=== PATIENT | female | born 1975 | race Caucasian/White ===

== ENCOUNTER 2017-12-18 10:32 | Inpatient (IN) | payer OTHER ==
[~2017-12-18] VITALS: Ht 165.1 cm; Wt 65.0 kg
[~2017-12-18 10:32] MED LIST: AMLO10 PO; CIPR250 PO; Humalog100 UNIT/1 SC; INSDET100 SC; INSLI100I; Zofran8 MG PO
[2017-12-18 10:56] LABS: Hematocrit 49.1 % (33.0-51.0); Hemoglobin 12.9 g/dL (11.5-16.0); Mean Corpuscular HGB 26.8 pg (26.0-34.0); Mean Corpuscular HGB Conc 26.3 g/dL (31.5-36.5); Mean Corpuscular Volume 102 fL (80-100); NRBC ABSOLUTE 0.02 K/mm3 (0.00-0.02); NRBC Auto 0.1 /100 WBC (0.0-0.2); Platelet Count 502 K/mm3 (150-400); RDW Coefficient Variation 16.3 % (11.7-14.2); RDW Standard Deviation 61.7 fL (35.1-46.3); Red Blood Cell Count 4.81 M/mm3 (3.80-5.20); White Blood Cell Count 33.51 K/mm3 (4.00-11.30)
[2017-12-18 11:00] LABS: Source, Urine Catheter
[2017-12-18 11:15] LABS: Bilirubin, Urine Neg (Neg); Blood, Urine 1+ (Neg); Glucose Qualitative, Urine 4+ (Neg); Ketones, Urine 4+ (Neg); Leukocyte Esterase, Urine Neg (Neg); Nitrite, Urine Neg (Neg); Protein, Urine 2+ (Neg); Specific Gravity, Urine 1.015 (1.003-1.022); Urobilinogen, Urine NORM (Normal)
[2017-12-18 11:21] LABS: BAND PERCENT MAN 1 % (0-8); BASOPHILS PERCENT MAN 0 % (0-2); EOSINOPHILS ABSOLUTE MAN 0.33 K/mm3 (0.00-0.68); EOSINOPHILS PERCENT MAN 1 % (0-6); LYMPHOCYTES ABSOLUTE MAN 5.69 K/mm3 (0.84-5.20); LYMPHOCYTES PERCENT MAN 17 % (21-46); METAMYELOCYTE ABSOLUTE MAN 0.33 K/mm3 (0.00-0.00); METAMYELOCYTE PERCENT MAN 1 % (0-0); MONOCYTES ABSOLUTE MAN 1.34 K/mm3 (0.16-1.47); MONOCYTES PERCENT MAN 4 % (4-13); SEG NEUTROPHILS PERCENT MAN 76 % (41-73); TOTAL CELLS COUNTED 100
[2017-12-18 11:28] LABS: Ethanol (Alcohol), Blood, Med <3 mg/dL; Troponin I <0.015 ng/mL (0.000-0.040)
[2017-12-18 11:29] LABS: U Amphetamine Screen Not Detected; U Barbituate Screen Not Detected; U Benzodiazapine Screen Not Detected; U Buprenorphine Screen Not Detected; U Cannabinoids Screen Not Detected; U Cocaine Screen Not Detected; U Methadone Screen Not Detected; U Methamphetamine Screen Not Detected; U Opiates Screen Not Detected; U Oxycodone Screen Not Detected; U Phencyclidine Screen Not Detected; U Propoxyphene Screen Not Detected
[2017-12-18 11:35] LABS: Appearance, Urine Hazy (Clear); Color, Urine Yellow (P-Yellow)
[2017-12-18 11:38] LABS: Bacteria Rare /hpf; Red Blood Cells, Urine 0-2 /hpf (0-2); Squamous Epithelial Cells Not Seen /hpf (Few); White Blood Cells, Urine Not Seen /hpf (0-5)
[2017-12-18 11:51] LABS: Alanine Aminotransfer (ALT/SGP 15 U/L (12-78); Albumin, Blood 3.4 g/dL (3.4-5.0); Albumin/Globulin Ratio 0.8 (0.8-1.8); Alk Phos 150 U/L (50-136); Anion Gap 38 mmol/L (6-16); Aspartate Aminotrans (AST/SGOT 14 U/L (12-37); Bilirubin, Total 0.5 mg/dL (0.1-1.0); Blood Urea Nitrogen 40 mg/dL (8-24); CO2, Blood 3 mmol/L (21-32); Calcium, Blood 9.2 mg/dL (8.5-10.1); Chloride, Blood 92 mmol/L (98-108); Creatinine, Blood 2.35 mg/dL (0.40-1.00); Globulin, Blood 4.5 g/dL (2.2-4.0); Glomerular Filtration Rate 24 (60-); Glucose, Blood 1323 mg/dL (70-99); Potassium, Blood 5.3 mmol/L (3.5-5.5); Sodium, Blood 133 mmol/L (136-145); Total Protein, Blood 7.9 g/dL (6.4-8.2)
[2017-12-18 11:52] LABS: Beta-hydroxybutyrate >138.0 mg/dL (0.2-2.8)
[2017-12-18 14:02] LABS: PCO2 Arterial 11.3 mmHg (35-45); PO2 Arterial 173 mmHg (80-100); pH Blood Arterial 6.81 (7.35-7.45)
[2017-12-18 14:11] LABS: Bun/Creatinine Ratio 20.5 (12.0-20.0); Calcium, Blood 7.4 mg/dL (8.5-10.1); Creatinine, Blood 1.95 mg/dL (0.40-1.00); Potassium, Blood 4.3 mmol/L (3.5-5.5)
[2017-12-18 15:50] LABS: Glucose, Blood 873 mg/dL (70-99); Potassium, Blood 4.4 mmol/L (3.5-5.5)
[2017-12-18 16:35] LABS: Potassium, Blood 4.3 mmol/L (3.5-5.5)
[2017-12-18 17:38] LABS: Potassium, Blood 4.4 mmol/L (3.5-5.5)
[2017-12-18 17:42] LABS: Glucose, Blood 701 mg/dL (70-99)
[2017-12-18 17:47] LABS: Glucose, Blood 760 mg/dL (70-99)
[2017-12-18 18:30] LABS: Glucose (ISTAT POC) 524 mg/dL (70-99)
[2017-12-18 19:07] LABS: Glucose, Blood 496 mg/dL (70-99)
[2017-12-18 19:27] LABS: Potassium, Blood 3.9 mmol/L (3.5-5.5)
[2017-12-18 20:55] LABS: Potassium, Blood 3.7 mmol/L (3.5-5.5)
[2017-12-19 00:45] LABS: Potassium, Blood 4.4 mmol/L (3.5-5.5)
[2017-12-19 03:41] LABS: BASOPHILS ABSOLUTE AUTO 0.02 K/mm3 (0.00-0.23); BASOPHILS PERCENT AUTO 0 % (0-2); EOSINOPHILS PERCENT AUTO 0 % (0-6); Hematocrit 31.3 % (33.0-51.0); Hemoglobin 10.4 g/dL (11.5-16.0); IMMATURE GRAN ABSOLUTE AUTO 0.13 K/mm3 (0.00-0.10); IMMATURE GRAN PERCENT AUTO 1 % (0-1); LYMPHOCYTES ABSOLUTE AUTO 1.37 K/mm3 (0.84-5.20); LYMPHOCYTES PERCENT AUTO 10 % (21-46); MONOCYTES ABSOLUTE AUTO 1.11 K/mm3 (0.16-1.47); MONOCYTES PERCENT AUTO 8 % (4-13); Mean Corpuscular HGB 26.3 pg (26.0-34.0); Mean Corpuscular HGB Conc 33.2 g/dL (31.5-36.5); Mean Platelet Volume 10.8 fL (9.1-12.4); NEUTROPHILS ABSOLUTE AUTO 11.11 K/mm3 (1.96-9.15); NEUTROPHILS PERCENT AUTO 81 % (41-73); Platelet Count 249 K/mm3 (150-400); RDW Coefficient Variation 15.9 % (11.7-14.2); Red Blood Cell Count 3.96 M/mm3 (3.80-5.20); White Blood Cell Count 13.74 K/mm3 (4.00-11.30)
[2017-12-19 03:44] LABS: Mean Corpuscular Volume 79 fL (80-100)
[2017-12-19 03:59] LABS: Bun/Creatinine Ratio 19.9 (12.0-20.0); Creatinine, Blood 1.56 mg/dL (0.40-1.00); Potassium, Blood 4.1 mmol/L (3.5-5.5)
[2017-12-19 07:22] LABS: Bun/Creatinine Ratio 19.5 (12.0-20.0); Calcium, Blood 7.8 mg/dL (8.5-10.1); Creatinine, Blood 1.49 mg/dL (0.40-1.00); Potassium, Blood 3.8 mmol/L (3.5-5.5)
[2017-12-19 15:34] LABS: Bun/Creatinine Ratio 15.6 (12.0-20.0); Calcium, Blood 7.8 mg/dL (8.5-10.1); Creatinine, Blood 1.41 mg/dL (0.40-1.00); Potassium, Blood 3.7 mmol/L (3.5-5.5)
[2017-12-20 06:08] LABS: Bun/Creatinine Ratio 11.1 (12.0-20.0); Calcium, Blood 7.6 mg/dL (8.5-10.1); Creatinine, Blood 1.17 mg/dL (0.40-1.00); Potassium, Blood 3.5 mmol/L (3.5-5.5)
[2017-12-20 13:03] LABS: Glucose, Blood 500 mg/dL (70-99)
[2017-12-20 17:17] LABS: Adenovirus F 40/41 Not Detected (NOT DETECT); Astrovirus Not Detected (NOT DETECT); Campylobacter Sp Not Detected (NOT DETECT); Cryptosporidium Not Detected (NOT DETECT); Cyclospora Cayetanensis Not Detected (NOT DETECT); E. Coli O157 Not Detected (NOT DETECT); Entamoeba Histolytica Not Detected (NOT DETECT); Enteroaggregative E. coli-EAEC Not Detected (NOT DETECT); Enteropathogenic E. coli-EPEC Not Detected (NOT DETECT); Enterotoxigenic E. coli-ETEC Not Detected (NOT DETECT); Giardia Lamblia Not Detected (NOT DETECT); Norovirus GI/GII Not Detected (NOT DETECT); Plesiomonas Shigelloides Not Detected (NOT DETECT); Rotavirus A Not Detected (NOT DETECT); Salmonella Sp Not Detected (NOT DETECT); Sapovirus Not Detected (NOT DETECT); Shiga Toxin-prod E. coli-STEC Not Detected (NOT DETECT); Shigella/Enteroin E. coli-EIEC Not Detected (NOT DETECT); Vibrio Cholerae Not Detected (NOT DETECT); Vibrio Sp Not Detected (NOT DETECT); Yersinia Enterocolitica Not Detected (NOT DETECT)
[2017-12-21 04:22] LABS: BASOPHILS ABSOLUTE AUTO 0.03 K/mm3 (0.00-0.23); BASOPHILS PERCENT AUTO 0 % (0-2); EOSINOPHILS ABSOLUTE AUTO 0.03 K/mm3 (0.00-0.68); EOSINOPHILS PERCENT AUTO 0 % (0-6); Hematocrit 30.2 % (33.0-51.0); Hemoglobin 9.8 g/dL (11.5-16.0); IMMATURE GRAN ABSOLUTE AUTO 0.02 K/mm3 (0.00-0.10); IMMATURE GRAN PERCENT AUTO 0 % (0-1); LYMPHOCYTES ABSOLUTE AUTO 2.32 K/mm3 (0.84-5.20); LYMPHOCYTES PERCENT AUTO 33 % (21-46); MONOCYTES ABSOLUTE AUTO 0.47 K/mm3 (0.16-1.47); MONOCYTES PERCENT AUTO 7 % (4-13); Mean Corpuscular HGB 26.7 pg (26.0-34.0); Mean Corpuscular HGB Conc 32.5 g/dL (31.5-36.5); Mean Platelet Volume 10.4 fL (9.1-12.4); NEUTROPHILS ABSOLUTE AUTO 4.09 K/mm3 (1.96-9.15); NEUTROPHILS PERCENT AUTO 59 % (41-73); Platelet Count 141 K/mm3 (150-400); RDW Coefficient Variation 16.2 % (11.7-14.2); RDW Standard Deviation 48.8 fL (35.1-46.3); Red Blood Cell Count 3.67 M/mm3 (3.80-5.20); White Blood Cell Count 6.96 K/mm3 (4.00-11.30)
[2017-12-21 04:23] LABS: Mean Corpuscular Volume 82 fL (80-100)
[2017-12-21 04:43] LABS: Bun/Creatinine Ratio 12.7 (12.0-20.0); Calcium, Blood 7.9 mg/dL (8.5-10.1); Creatinine, Blood 1.1 mg/dL (0.40-1.00); Potassium, Blood 3.2 mmol/L (3.5-5.5)
[2017-12-21] MEDS ORDERED: ALPR.5 PO (09:36)
[2017-12-21] MEDS ORDERED: ACET325 PO (09:36)
[2017-12-21] MEDS ORDERED: GABA100 PO (09:37)
[2017-12-21] MEDS ORDERED: INSULANPEN SC (09:38)
[2017-12-21] MEDS ORDERED: Humalog100 UNIT/1 SC (09:40)
[2017-12-21] MEDS ORDERED: LOPE2C PO (09:42)
[2017-12-21] MEDS ORDERED: ONDA4ODT MM (09:42)
[2017-12-21] MEDS ORDERED: PANT40 PO (09:43)
[2017-12-21] MEDS ORDERED: Lisinopril2.5 MG PO (09:46)
[2017-12-21] MEDS ORDERED: POTCHL10ER PO (09:46)
[2017-12-21] MEDS ORDERED: Techlite Blood1 EACH (09:47)
== END 2017-12-21 11:21 | disposition home or self-care (01) | DRG 638 ==
LOC: ER 10:32 → ICUW 13:01 → ICUE 14:37
PROVIDERS: Emergency Medicine; Family Medicine; Internal Medicine
PROC: 3E0234Z Introduction of Serum, Toxoid and Vaccine into Muscle, Percutaneous Approach (ICD-10-PCS; principal; 2017-12-18)
DX: E10.10 Type 1 diabetes mellitus with ketoacidosis without coma (principal); N17.9 Acute kidney failure, unspecified; N39.0 Urinary tract infection, site not specified; G93.40 Encephalopathy, unspecified; E87.1 Hypo-osmolality and hyponatremia; T68.XXXA Hypothermia, initial encounter; Z96.41 Presence of insulin pump (external) (internal); K58.0 Irritable bowel syndrome with diarrhea; E86.0 Dehydration; E87.6 Hypokalemia; I95.9 Hypotension, unspecified; Z79.4 Long term (current) use of insulin; Z23 Encounter for immunization
CPT/HCPCS: 36415; 36600; 70450; 71045; 80048; 80051; 80053; 81001; 82010; 82803; 82947; 83605; 84484; 85025; 87040; 87507; 90686; 93005; 93010; 96361; 96374; 99285-25; C9113; G0008; G0480; J0696; J1650; J1815; J2405; J2765; J3480; J7030; J7070

== ENCOUNTER 2018-10-31 15:03 | Emergency (ER) | payer OTHER ==
[~2018-10-31] VITALS: Ht 167.6 cm; Wt 68.0 kg
[~2018-10-31 15:03] MED LIST changes: +ACET325 PO; +ALPR.5 PO; +GABA100 PO; +INSULANPEN SC; +LOPE2C PO; +Lisinopril2.5 MG PO; +ONDA4ODT MM; +PANT40 PO; +POTCHL10ER PO; +Techlite Blood1 EACH
[2018-10-31 15:43] LABS: BASOPHILS ABSOLUTE AUTO 0.06 K/mm3 (0.00-0.23); BASOPHILS PERCENT AUTO 1 % (0-2); EOSINOPHILS ABSOLUTE AUTO 0.04 K/mm3 (0.00-0.68); EOSINOPHILS PERCENT AUTO 0 % (0-6); Hematocrit 32.9 % (33.0-51.0); Hemoglobin 10.2 g/dL (11.5-16.0); IMMATURE GRAN ABSOLUTE AUTO 0.02 K/mm3 (0.00-0.10); IMMATURE GRAN PERCENT AUTO 0 % (0-1); LYMPHOCYTES ABSOLUTE AUTO 2.17 K/mm3 (0.84-5.20); LYMPHOCYTES PERCENT AUTO 23 % (21-46); MONOCYTES ABSOLUTE AUTO 0.48 K/mm3 (0.16-1.47); MONOCYTES PERCENT AUTO 5 % (4-13); Mean Corpuscular HGB 25.2 pg (26.0-34.0); Mean Corpuscular Volume 81 fL (80-100); Mean Platelet Volume 10.4 fL (9.1-12.4); NEUTROPHILS ABSOLUTE AUTO 6.73 K/mm3 (1.96-9.15); NEUTROPHILS PERCENT AUTO 71 % (41-73); Platelet Count 329 K/mm3 (150-400); RDW Coefficient Variation 15.9 % (11.7-14.2); RDW Standard Deviation 46.5 fL (35.1-46.3); Red Blood Cell Count 4.04 M/mm3 (3.80-5.20)
[2018-10-31 15:46] LABS: Base Excess Venous -1.4 mmol/L; Bicarbonate Venous 23.6 mmol/L (24.0-30.0); PCO2 Venous 33.9 mmHg (38-42); PO2 Venous 114 mmHg (38-42); pH Blood Venous 7.44 (7.34-7.37)
[2018-10-31 15:50] LABS: Source, Urine Clean Catch
[2018-10-31 15:59] LABS: Bilirubin, Urine Neg (Neg); Blood, Urine 4+ (Neg); Glucose Qualitative, Urine 4+ (Neg); Ketones, Urine 3+ (Neg); Leukocyte Esterase, Urine 3+ (Neg); Nitrite, Urine Neg (Neg); Protein, Urine 2+ (Neg); Specific Gravity, Urine 1.015 (1.003-1.022); Urobilinogen, Urine NORM (Normal)
[2018-10-31 16:03] LABS: Albumin, Blood 2.8 g/dL (3.4-5.0); Albumin/Globulin Ratio 0.7 (0.8-1.8); Beta-hydroxybutyrate 43.1 mg/dL (0.2-2.8); Bilirubin, Total 0.4 mg/dL (0.1-1.0); Bun/Creatinine Ratio 17.3 (12.0-20.0); Calcium, Blood 8.7 mg/dL (8.5-10.1); Creatinine, Blood 1.62 mg/dL (0.40-1.00); Total Protein, Blood 6.8 g/dL (6.4-8.2)
[2018-10-31 16:15] LABS: Appearance, Urine Cloudy (Clear); Color, Urine Yellow (P-Yellow)
[2018-10-31 16:16] LABS: Bacteria Many /hpf; Squamous Epithelial Cells Few /hpf (Few); White Blood Cells, Urine TNTC /hpf (0-5)
[2018-10-31] MEDS ORDERED: CEFP200 PO (17:17)
[2018-10-31] MEDS ORDERED: ONDA4ODT MM (17:17)
== END 2018-10-31 17:57 | disposition home or self-care (01) ==
LOC: ER 15:03
PROVIDERS: Physician Assistant
DX: N17.9 Acute kidney failure, unspecified (principal); N39.0 Urinary tract infection, site not specified; E11.9 Type 2 diabetes mellitus without complications
CPT/HCPCS: 36415; 80053; 81001; 81025; 82010; 82803; 82947; 85025; 87086; 96361; 96365; 99284-25; J0696; J7030

== ENCOUNTER 2019-01-24 07:20 | Inpatient (IN) | payer OTHER ==
[~2019-01-24] VITALS: Ht 167.6 cm; Wt 59.0 kg
[~2019-01-24 07:20] MED LIST changes: +CEFP200 PO
[2019-01-24 07:36] LABS: Base Excess Venous -32.7 mmol/L; Bicarbonate Venous 4.1 mmol/L (24.0-30.0); PCO2 Venous 11.4 mmHg (38-42); PO2 Venous 158 mmHg (38-42)
[2019-01-24 07:40] LABS: Calcium, Ionized (POC) 1.09 mmol/L (1.10-1.46); Chloride (POC) 102 mmol/L (98-108); Creatinine (POC) 2.3 mg/dL (0.6-1.0); Glucose (ISTAT POC) >700 mg/dL (70-99); Hemoglobin (POC) 10.9 g/dL (12.0-16.0); Potassium (POC) 6.1 mmol/L (3.5-5.5); Sodium (POC) 127 mmol/L (135-148); Total CO2 (POC) <5 mmol/L (21-32)
[2019-01-24 07:45] LABS: BASOPHILS ABSOLUTE AUTO 0.12 K/mm3 (0.00-0.23); BASOPHILS PERCENT AUTO 1 % (0-2); EOSINOPHILS ABSOLUTE AUTO 0.01 K/mm3 (0.00-0.68); EOSINOPHILS PERCENT AUTO 0 % (0-6); Hematocrit 35.1 % (33.0-51.0); Hemoglobin 9.9 g/dL (11.5-16.0); IMMATURE GRAN ABSOLUTE AUTO 0.28 K/mm3 (0.00-0.10); IMMATURE GRAN PERCENT AUTO 2 % (0-1); LYMPHOCYTES ABSOLUTE AUTO 1.72 K/mm3 (0.84-5.20); LYMPHOCYTES PERCENT AUTO 10 % (21-46); MONOCYTES ABSOLUTE AUTO 1.28 K/mm3 (0.16-1.47); MONOCYTES PERCENT AUTO 7 % (4-13); Mean Corpuscular HGB 27.7 pg (26.0-34.0); Mean Corpuscular HGB Conc 28.2 g/dL (31.5-36.5); Mean Corpuscular Volume 98 fL (80-100); Mean Platelet Volume 11.6 fL (9.1-12.4); NEUTROPHILS ABSOLUTE AUTO 14.59 K/mm3 (1.96-9.15); NEUTROPHILS PERCENT AUTO 81 % (41-73); Platelet Count 421 K/mm3 (150-400); RDW Coefficient Variation 14.5 % (11.7-14.2); Red Blood Cell Count 3.58 M/mm3 (3.80-5.20)
[2019-01-24 08:14] LABS: Magnesium, Blood 2.6 mg/dL (1.6-2.4)
[2019-01-24 08:20] LABS: Phosphorus, Blood 9.2 mg/dL (2.5-4.9)
[2019-01-24 08:24] LABS: Albumin, Blood 2.4 g/dL (3.4-5.0); Albumin/Globulin Ratio 0.8 (0.8-1.8); Bilirubin, Total 0.4 mg/dL (0.1-1.0); Bun/Creatinine Ratio 16.7 (12.0-20.0); Creatinine, Blood 2.22 mg/dL (0.40-1.00); Globulin, Blood 3.1 g/dL (2.2-4.0); Potassium, Blood 6.1 mmol/L (3.5-5.5); Total Protein, Blood 5.5 g/dL (6.4-8.2)
[2019-01-24 08:41] LABS: Source, Urine Catheter
[2019-01-24 08:53] LABS: Bilirubin, Urine Neg (Neg); Blood, Urine 2+ (Neg); Glucose Qualitative, Urine 4+ (Neg); Ketones, Urine 3+ (Neg); Leukocyte Esterase, Urine 2+ (Neg); Nitrite, Urine Pos (Neg); Protein, Urine 2+ (Neg); Specific Gravity, Urine 1.015 (1.003-1.022); Urobilinogen, Urine NORM (Normal)
[2019-01-24 08:59] LABS: Appearance, Urine Hazy (Clear); Color, Urine Yellow (P-Yellow)
[2019-01-24 09:00] LABS: Granular Casts 0-2 /lpf (0)
[2019-01-24 09:01] LABS: White Blood Cells, Urine 50-100 /hpf (0-5)
[2019-01-24 09:02] LABS: Bacteria Many /hpf; Squamous Epithelial Cells Few /hpf (Few)
[2019-01-24 09:07] LABS: U Amphetamine Screen Not Detected; U Barbituate Screen Not Detected; U Benzodiazapine Screen Not Detected; U Buprenorphine Screen Not Detected; U Cannabinoids Screen Not Detected; U Cocaine Screen Not Detected; U Methadone Screen Not Detected; U Methamphetamine Screen Not Detected; U Opiates Screen Not Detected; U Oxycodone Screen Not Detected; U Phencyclidine Screen Not Detected; U Propoxyphene Screen Not Detected
[2019-01-24 09:09] LABS: Ethanol (Alcohol), Blood, Med <3 mg/dL
--- NOTE | 2019-01-24 10:00 | NUR ---
INITIAL ASSESMENT PT ADMIT TO ICU 2 VIA STRETCHER WITH INSULIN AND ANTIBX INFUSING. PT ARROUSABLE TO PAINFUL STIM AND WILL OPEN HER EYES AND FOLLOW COMMANDS. ORIENTED TO SELF, NO NON VERBAL INDICATIONS TO PAIN. PT AFEBRILE, TACHY, PALP PULSES T/O, HYPOTENSIVE AND MD ADVISED. WILL BOLUS PER MD ORDERS. RUE MIDLINE PLACED VIA CN, GOOD BLOOD DRAW AND FLUSHES AMIRA, LEFT HAND PIV D/C IT WAS A FEILD START. NO EDEMA. RA WITH SATS WNL. KUSSMAL BREATHING AND TACHY.NPO AT THIS TIME, ABD SOFT FLAT AND NON TENDER WITH HYPO BTS. UO ADEQUATE AND LIGHT YELLOW VIA FOLWY. SKIN INTACT. UNABLE TO REACH PATIENTS DAUGHTER VIA PHONE AND NOT FOUND IN [facility]. CN AWARE. WILL CONT TO MONITOR
[2019-01-24 11:03] LABS: Bun/Creatinine Ratio 16.5 (12.0-20.0); Calcium, Blood 7.5 mg/dL (8.5-10.1)
[2019-01-24 11:06] LABS: Potassium, Blood 4.1 mmol/L (3.5-5.5)
[2019-01-24 11:08] LABS: Glucose, Blood 839 mg/dL (70-99)
[2019-01-24 11:55] LABS: Base Excess Venous -26.2 mmol/L; Bicarbonate Venous 7.2 mmol/L (24.0-30.0); PCO2 Venous 14.7 mmHg (38-42); PO2 Venous 108 mmHg (38-42); pH Blood Venous 7.06 (7.34-7.37)
--- NOTE | 2019-01-24 12:00 | NUR ---
PT UPDATE PT REMAINS HYPOTENSIVE AND TACHY, BOLUSES PER MD. SBP IN 70S TO 80S WITH MAP BELOW 60. PALP PULSES, UO ADEQUATE, TITRATING INSULIN DOWN TO ASSURE SLOW CORRECTION, LAB DRAWING CS BEDSIDE WILL NOT READ LEVEL. RA WITH SATS WNL. WILL CONT TO MONITOR.
[2019-01-24 12:40] LABS: Osmolality, Serum 353 mos/KG (275-300)
[2019-01-24 12:44] LABS: Glucose, Blood 728 mg/dL (70-99)
[2019-01-24 13:20] LABS: Glucose, Blood 619 mg/dL (70-99)
[2019-01-24 14:08] LABS: Glucose, Blood 564 mg/dL (70-99)
[2019-01-24 15:36] LABS: Calcium, Blood 7.3 mg/dL (8.5-10.1); Creatinine, Blood 1.93 mg/dL (0.40-1.00); Potassium, Blood 3.7 mmol/L (3.5-5.5)
--- NOTE | 2019-01-24 16:00 | NUR ---
PT UPDATE PT REMAINS HYPOTENSIVE, CALLED TO CHANGE TO NS, FINISH LR AND START LEVO FOR GOAL MAP GREATER THAN 60. UO REMAINS STABLE PT AROUSABLE TO VERBAL STIM, TACHY, BS DECLINING AND TITRATING INSULIN. PICC RN CALLED TO ADVANCE PICC OVER MIDLINE FOR PRESSERS. AWARE, CN AT BEDSIDE. WILL CONT TO MONITOR
--- NOTE | 2019-01-24 20:00 | NUR ---
ASSUMED CARE NOTE: ASSUMED CARE OF PT AT 1900, RECEVIED REPORT FROM YUMIKO HIGH. UPON ENTERING ROOM, PT WAS ABLE TO RESPOND TO PAIN AND VERBAL SITMULI. PT IS ORIENTED TO SELF. PT IS SLOW TO RESPOND TO QUESTIONS AND BECOMES FRUSTRATED AND AGITATED. HOWEVER SHE IS ABLE TO FOLLOW DIRECTIONS. PT HAS BEEN NAUSEATED AND VOMITED 5CC OF GREEN EMESIS. PT WAS MEDICATED FOR N/V PER EMAR. HOSPITALIST (RACHAEL) WAS CALLED OF CHANGE IN STATUS AND NEW ORDERS WERE GIVEN. PT IS CURRENTLY ON RA WITH SPO2 ABOVE 90%. VSS. PT CURRENTLY IN SINUS TACH. LEVOPHED @ 2 MCG/MIN, INSULIN 1 UNIT/HR. BED AT LOWEST LEVEL. WILL CONTINUE TO MONITOR PT T/O SHIFT.
[2019-01-24 20:29] LABS: Base Excess Venous -9.7 mmol/L; Bicarbonate Venous 16.9 mmol/L (24.0-30.0); PCO2 Venous 38.4 mmHg (38-42); PO2 Venous 46.4 mmHg (38-42); pH Blood Venous 7.26 (7.34-7.37)
[2019-01-24 20:52] LABS: Bun/Creatinine Ratio 16.4 (12.0-20.0); Calcium, Blood 7.3 mg/dL (8.5-10.1); Creatinine, Blood 1.71 mg/dL (0.40-1.00); Potassium, Blood 3.5 mmol/L (3.5-5.5)
[2019-01-25 01:12] LABS: Bun/Creatinine Ratio 15.7 (12.0-20.0); Calcium, Blood 7.2 mg/dL (8.5-10.1); Creatinine, Blood 1.66 mg/dL (0.40-1.00); Potassium, Blood 3.9 mmol/L (3.5-5.5)
[2019-01-25 03:56] LABS: BASOPHILS ABSOLUTE AUTO 0.09 K/mm3 (0.00-0.23); BASOPHILS PERCENT AUTO 1 % (0-2); EOSINOPHILS ABSOLUTE AUTO 0.07 K/mm3 (0.00-0.68); EOSINOPHILS PERCENT AUTO 0 % (0-6); Hematocrit 22.9 % (33.0-51.0); Hemoglobin 7.5 g/dL (11.5-16.0); IMMATURE GRAN ABSOLUTE AUTO 0.08 K/mm3 (0.00-0.10); IMMATURE GRAN PERCENT AUTO 1 % (0-1); LYMPHOCYTES ABSOLUTE AUTO 3.09 K/mm3 (0.84-5.20); LYMPHOCYTES PERCENT AUTO 18 % (21-46); MONOCYTES ABSOLUTE AUTO 1.43 K/mm3 (0.16-1.47); MONOCYTES PERCENT AUTO 8 % (4-13); Mean Corpuscular HGB 26.8 pg (26.0-34.0); Mean Corpuscular HGB Conc 32.8 g/dL (31.5-36.5); Mean Corpuscular Volume 82 fL (80-100); Mean Platelet Volume 10.2 fL (9.1-12.4); NEUTROPHILS ABSOLUTE AUTO 12.68 K/mm3 (1.96-9.15); NEUTROPHILS PERCENT AUTO 73 % (41-73); Platelet Count 360 K/mm3 (150-400); RDW Coefficient Variation 14.9 % (11.7-14.2); RDW Standard Deviation 43.4 fL (35.1-46.3); White Blood Cell Count 17.44 K/mm3 (4.00-11.30)
[2019-01-25 04:09] LABS: Alanine Aminotransfer (ALT/SGP 21 U/L (12-78); Albumin/Globulin Ratio 0.8 (0.8-1.8); Alk Phos 70 U/L (50-136); Anion Gap 7 mmol/L (6-16); Aspartate Aminotrans (AST/SGOT 26 U/L (12-37); Blood Urea Nitrogen 25 mg/dL (8-24); Bun/Creatinine Ratio 15.3 (12.0-20.0); CO2, Blood 23 mmol/L (21-32); Calcium, Blood 7.3 mg/dL (8.5-10.1); Chloride, Blood 115 mmol/L (98-108); Creatinine, Blood 1.63 mg/dL (0.40-1.00); Globulin, Blood 2.6 g/dL (2.2-4.0); Glomerular Filtration Rate 36 (60-); Glucose, Blood 184 mg/dL (70-99); Magnesium, Blood 1.5 mg/dL (1.6-2.4); Phosphorus, Blood 2.9 mg/dL (2.5-4.9); Sodium, Blood 145 mmol/L (136-145); Total Protein, Blood 4.6 g/dL (6.4-8.2)
[2019-01-25 04:30] LABS: Bilirubin, Total <0.1 mg/dL (0.1-1.0)
--- NOTE | 2019-01-25 05:15 | NUR ---
CALLED DR. FINLEY: REGARDING PT'S STATUS. NEW ORDERS GIVEN TO REPLACE MAGNESIUM. NO CHANGES MADE TO INSULIN DRIP. WILL CONTINUE TO MONTIOR PT T/O SHIFT.
--- NOTE | 2019-01-25 05:54 | NUR ---
SHIFT SUMMARY: PT REMAINS UNABLE TO ANSWER QUESTIONS APPROPRIATLY. PT IS ABLE TO RESPOND TO VERBAL AND PAINFUL STIMULI. PT REMAINS ON RA WITH SP02 ABOVE 90%. PT HAS BEEN HYPOTENSIVE DURING SHIFT AND FOR THE MAJORITY OF THE SHIFT PT WAS ON LEVOPHED @ 4MCG/MIN, HOWEVER LEVOPHED HAS BEEN ABLE TO BE LOWERED TO 2MCG/MIN WITH MAP REMAINING ABOVE 60 AND SBP ABOVE 90. PT EXPERIENCED ONE MORE EPISODE OF NAUSEA AND SHE WAS MEDICATED PER EMAR. PT'S HAS HAD DECREASED URINE OUTPUT WITH A TOTAL OF 300MLS FOR SHIFT. SEDIMENT NOTED IN URINE. KHALIL FLUSHED. KHALIL REMAINS PATENT AND IS FREE FROM OBSTRUCTIONS. NSR WITH HR BETWEEN 90-100, OCCASIONAL HR ABOVE 100 BMP. PT HAS BEEN REPOSITIONED Q2HR. D5/NS RUNNING @ 200ML/HR. INSULIN 1U/HR. BED AT LOWEST LEVEL. WILL CONTINUE TO MONITOR PT UNTIL REPORT IS GIVEN TO ONCOMING SHIFT.
--- NOTE | 2019-01-25 08:11 | NUR ---
ASSUMED CARE: RECEIVED REPORT FROM NOC RN. PT SITTING UP IN BED, APPEARS TO BE SLEEPING UPON ENTERING THE ROOM. NO ACUTE DISTRESS NOTED. BLOOD SURGAR TAKEN AND NOTED TO BE 183. DR ELIZALDE CALLED AND NOTIFIED OF BLOOD SUGAR, ANION AT 7, CO2 AT 23 AND D5 /C 1/2NS AT 200ML/HR AND INSULIN RUNNING AT 1 UNIT/HR. NO NEW ORDERS OF YET AWAITING TO SEE IF PT CAN EAT. PT GIVEN APPLE SAUCE TO SEE IF SHE GETS NAUSEOUS. PT IS NOTED HAVE APPROX 2+ EDEMA IN HER HANDS AND SOME GENERAL EDEMA NOTED AROUND HER EYES. PT APPEARS TO BE VERY GRUFF THIS MORNING BEING VERY SHORT WITH HER ANSWERS, WHEN NOTING THE EDEMA IN HER HANDS PT STATES "BECAUSE YOU'RE GIVING ME TO MUCH FLUIDS" ATTEMPTED TO EDUCATE PT ON BEING SEPTIC UPON ARIVING TO THE HOSPTIAL. ASKED PT IF SHE WOULD BE ABLE TO TAKE HER RING OFF CONSIDERING HER FINGERS ARE VERY SWOLLEN AND PT RAISES HER VOICE AND SAYS "NO, AND YOUR NOT GOING TO TAKE IT OFF EITHER". WILL CONTINUE TO MONITOR AND ASSESS FURHTER.
--- NOTE | 2019-01-25 11:04 | NUR ---
Received call from bedside nurse Samantha. She reports Pt is interested in completing an Advanced Directive. Pt is A&OX4 and denies pain, dyspnea, and anxiety at this time. Engaged in therapeutic discussion regarding competing an AD. Pt appears drowsey but is easily redirected to conversation. Educated Pt on AD and each section to be completed. Educated on life sustaining measures with V/U made by Pt. Assisted with partial completion of AD and Pt intials wishes for life sustaining measures. Pt appoints her friend Aislinn as health care used equipment sales representative. Instructed Pt Aislinn and Pt will need to sign in front of notary or witnesses. Pt V/U. No other concerns reported at this time. Palliative Care will remain available.
[2019-01-25 12:07] LABS: Percent Saturation 10.4 % (15.0-50.0)
--- NOTE | 2019-01-25 16:17 | NUR ---
UPDATE: PT HAS APPEARED TO BE A/O X 3 T/O THE DAY, BUT LITHARGIC. PT APPEARS TO FALL ASLEEP EASILY, BUT WILL WAKE TO VERBAL STEMULI. INSULIN WAS TURNED OFF AT APPROX 1300. LEVOPHED WAS TURNED OFF APPROX 1100. PT HAS APPEARED TO BE STABLE T/O THE DAY. NO ACUTE DISTRESS NOTED T/O THE DAY. WILL CONTINUE TO MONITOR AND ASSESS FURTHER.
--- NOTE | 2019-01-25 17:50 | NUR ---
ASSUMED CARE OF PT
--- NOTE | 2019-01-25 19:10 | NUR ---
REPORT TO MODEL BUILDER RN. PT RESTING IN BED WITHOUT COMPLAINTS.
--- NOTE | 2019-01-25 19:30 | NUR ---
ASSUMPTION OF CARE RECEIVED REPORT FROM LINDEN HIGH. 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 CURRENTLY HAS A UTI. FULL CODE STATUS. PATIENT IS CURRENTLY RESTING IN BED, QUIET. DENIES ANY PAIN OR DISCOMFORT. LEVOPHED AND INSULIN DRIPS ARE ON STANDBY. HAS TKO. SHAY PICC IS @ 3CM, ALL LINES PATENT, LINES WERE FLUSHED, CAPS CHANGED, GOOD BLOOD RETURN ON THE DISTAL LINE. DRESSING IS C/D/I. IV IN RIGHT HAND FLUSHED, IS PATENT. DRESSING C/D/I. VITALS STABLE AND WNL. WILL CONTINUE TO MONITOR. FRANK HERNANDEZ
[2019-01-26 04:54] LABS: BASOPHILS ABSOLUTE AUTO 0.03 K/mm3 (0.00-0.23); BASOPHILS PERCENT AUTO 1 % (0-2); EOSINOPHILS ABSOLUTE AUTO 0.01 K/mm3 (0.00-0.68); EOSINOPHILS PERCENT AUTO 0 % (0-6); Hematocrit 24.1 % (33.0-51.0); Hemoglobin 7.9 g/dL (11.5-16.0); IMMATURE GRAN ABSOLUTE AUTO 0.03 K/mm3 (0.00-0.10); IMMATURE GRAN PERCENT AUTO 1 % (0-1); LYMPHOCYTES ABSOLUTE AUTO 1.59 K/mm3 (0.84-5.20); LYMPHOCYTES PERCENT AUTO 33 % (21-46); MONOCYTES ABSOLUTE AUTO 0.31 K/mm3 (0.16-1.47); MONOCYTES PERCENT AUTO 6 % (4-13); Mean Corpuscular HGB 27.6 pg (26.0-34.0); Mean Corpuscular HGB Conc 32.8 g/dL (31.5-36.5); Mean Corpuscular Volume 84 fL (80-100); Mean Platelet Volume 9.5 fL (9.1-12.4); NEUTROPHILS ABSOLUTE AUTO 2.84 K/mm3 (1.96-9.15); NEUTROPHILS PERCENT AUTO 59 % (41-73); Platelet Count 160 K/mm3 (150-400); RDW Coefficient Variation 15.6 % (11.7-14.2); RDW Standard Deviation 47.4 fL (35.1-46.3); Red Blood Cell Count 2.86 M/mm3 (3.80-5.20); White Blood Cell Count 4.81 K/mm3 (4.00-11.30)
--- NOTE | 2019-01-26 05:28 | NUR ---
PATIENT HAS BEEN RESTING AND QUIET THROUGHOUT THE SHIFT. PICC AT 3CM LEFT ARM, PATENT, DRESSING C/D/I. IV 20G RIGHT HAND, PATENT, DRESSING C/D/I. INSULIN DRIP ON STANDBY, TKO IS OPEN. PT REFUSED NYSTATIN POWDER AND PROTONIX "I DONT NEED IT/DON'T WANT IT". WOULD NOT LET ME TOUCH FEET TO CHECK PULSES. KHALIL IS PATENT, URINE IS DRAINING YELLOW WITH SEDIMENT. SYSTOLIC HAS RANGED FROM 110s TO 150s, DIASTOLIC 70s TO 90s. HR 90-100. RR 7-16 THROUGHOUT SHIFT.WBC AT 4.81, DOWN FROM 17.44. WILL CONTINUE TO MONITOR PT AND GIVE DAYSHIFT RN REPORT. MAITE HERNANDEZ.
[2019-01-26 05:32] LABS: Albumin, Blood 1.8 g/dL (3.4-5.0); Anion Gap 7 mmol/L (6-16); Blood Urea Nitrogen 17 mg/dL (8-24); Bun/Creatinine Ratio 12.5 (12.0-20.0); CO2, Blood 22 mmol/L (21-32); Calcium, Blood 7.4 mg/dL (8.5-10.1); Chloride, Blood 114 mmol/L (98-108); Creatinine, Blood 1.36 mg/dL (0.40-1.00); Glomerular Filtration Rate 45 (60-); Glucose, Blood 170 mg/dL (70-99); Magnesium, Blood 1.8 mg/dL (1.6-2.4); Phosphorus, Blood 2.6 mg/dL (2.5-4.9); Sodium, Blood 143 mmol/L (136-145)
[2019-01-26] MEDS ORDERED: Pedi-Dri 100,0060 GM TOP (12:34)
[2019-01-26] MEDS ORDERED: HIGH POTENCY P1 EACH PO (12:34)
[2019-01-26] MEDS ORDERED: CEPH500 PO (12:35)
[2019-01-26] MEDS ORDERED: ONDA4ODT MM (12:35)
--- NOTE | 2019-01-26 13:32 | NUR ---
PT ASSESED THIS AM AT 0800. PT IN BED IRRITABLE AND "FRUSTRATED". "TIRED OF BEING IN BED". REMI GOODE'D. PT SBA TO CHAIR. PT MUCH HAPPIER IN CHAIR. PT DENIED C/O PAIN/NAUSEA. MALENA BREAKFAST AND LUNCH. DR ELIZALDE IN TO SEE PT. NEW ORDERS TO DISCHARGE PT HOME. RX FAXED TO [facility] PER PT REQUEST. VERBAL AND WRITTEN DC INFO GIVEN TO PT W CLEAR UNDERSTANDING. PICC LINE DC'D W/O ISSUES. PT IS DRESSED AND WAITING IN BED FOR RIDE HOME. CALL LIGHT WITHIN REACH.
== END 2019-01-26 14:00 | disposition home or self-care (01) | DRG 871 ==
LOC: ER 07:20 → ICUE 08:59 → ICUW 08:59 → ICUE 10:00
PROVIDERS: Emergency Medicine; Internal Medicine Critical Care Medicine; Nurse Practitioner Acute Care; ADMIT Internal Medicine
DX: A41.9 Sepsis, unspecified organism (principal); E10.10 Type 1 diabetes mellitus with ketoacidosis without coma; R65.21 Severe sepsis with septic shock; N17.9 Acute kidney failure, unspecified; N39.0 Urinary tract infection, site not specified; E87.1 Hypo-osmolality and hyponatremia; N18.3 Chronic kidney disease, stage 3 (moderate); E11.22 Type 2 diabetes mellitus with diabetic chronic kidney disease; I12.9 Hypertensive chronic kidney disease with stage 1 through stage 4 chronic kidney disease, or unspecified chronic kidney disease; Z79.4 Long term (current) use of insulin; E83.42 Hypomagnesemia; D50.9 Iron deficiency anemia, unspecified; D63.1 Anemia in chronic kidney disease; E10.43 Type 1 diabetes mellitus with diabetic autonomic (poly)neuropathy; K31.84 Gastroparesis; E87.5 Hyperkalemia; E83.39 Other disorders of phosphorus metabolism; K21.9 Gastro-esophageal reflux disease without esophagitis; F41.1 Generalized anxiety disorder; B37.9 Candidiasis, unspecified; Z87.440 Personal history of urinary (tract) infections
CPT/HCPCS: 36415; 36569; 51702; 71045; 80047; 80048; 80053; 80069; 81001; 81025; 82550; 82607; 82728; 82746; 82803; 82947; 83036; 83540; 83550; 83605; 83690; 83735; 83930; 84100; 85014; 85025; 87077; 87086; 87186; 93005; 93010; 96361-59; 96374-59; 96375-59; 96376-59; 99285-25; C1751; C9113; G0480; J0610; J0696; J1644; J1815; J2310; J2405; J2765; J3475; J3480; J7030; J7042; J7050; J7060; J7120

== ENCOUNTER → 2020-11-04 | Outpatient (CLI) | payer OTHER ==
[~2020-11-04] MED LIST changes: +AMLO5 PO; +BASAGLAR K100 UNIT/4 SC; +CEPH500 PO; +HIGH POTENCY P1 EACH PO; -INSULANPEN SC; +INSULIN LI100 UNIT/6 SC; +KEFLEX500 MG PO; +NEURONTIN300 MG PO; +PROBIOTIC & AC1 EACH PO; +Pedi-Dri 100,0060 GM TOP
[2020-11-04 17:46] LABS: Albumin, Blood 2.5 g/dL (3.4-5.0); Anion Gap 9 mmol/L (6-16); Blood Urea Nitrogen 24 mg/dL (8-24); CO2, Blood 23 mmol/L (21-32); Calcium, Blood 7.8 mg/dL (8.5-10.1); Chloride, Blood 109 mmol/L (98-108); Glomerular Filtration Rate 27 (60-); Glucose, Blood 215 mg/dL (70-99); Phosphorus, Blood 3.9 mg/dL (2.5-4.9); Potassium, Blood 4.7 mmol/L (3.5-5.5); Sodium, Blood 141 mmol/L (136-145)
== END | disposition home or self-care (01) ==
LOC: LAB SHORT 17:33 → LAB 17:33
PROVIDERS: Physician Assistant
DX: N18.32 Chronic kidney disease, stage 3b (principal)
CPT/HCPCS: 80069

== ENCOUNTER 2021-05-22 13:45 | Inpatient (IN) | payer OTHER ==
[~2021-05-22] VITALS: Ht 167.6 cm; Wt 78.2 kg
[2021-05-22 14:00] LABS: Calcium, Ionized (POC) 1.15 mmol/L (1.10-1.46); Chloride (POC) 97 mmol/L (98-108); Creatinine (POC) 3.5 mg/dL (0.6-1.0); Glucose (ISTAT POC) >700 mg/dL (70-99); Hemoglobin (POC) 8.2 g/dL (12.0-16.0); Potassium (POC) 6.5 mmol/L (3.5-5.5); Sodium (POC) 122 mmol/L (135-148); Total CO2 (POC) 8 mmol/L (21-32)
[2021-05-22 14:13] LABS: PO2 Arterial 214 mmHg (80-100); pH Blood Arterial 6.94 (7.35-7.45)
[2021-05-22 14:31] LABS: BASOPHILS ABSOLUTE AUTO 0.03 K/mm3 (0.00-0.23); BASOPHILS PERCENT AUTO 0 % (0-2); Hematocrit 26.4 % (33.0-51.0); Hemoglobin 7.3 g/dL (11.5-16.0); LYMPHOCYTES ABSOLUTE AUTO 2.75 K/mm3 (0.84-5.20); LYMPHOCYTES PERCENT AUTO 16 % (21-46); MONOCYTES PERCENT AUTO 5 % (4-13); Mean Corpuscular HGB 27.8 pg (26.0-34.0); Mean Corpuscular HGB Conc 27.7 g/dL (31.5-36.5); Mean Corpuscular Volume 100 fL (80-100); Mean Platelet Volume 11.2 fL (9.1-12.4); Platelet Count 468 K/mm3 (150-400); RDW Coefficient Variation 13.4 % (11.7-14.2); RDW Standard Deviation 49.2 fL (35.1-46.3); Red Blood Cell Count 2.63 M/mm3 (3.80-5.20); White Blood Cell Count 17.01 K/mm3 (4.00-11.30)
[2021-05-22 14:35] LABS: EOSINOPHILS ABSOLUTE AUTO 0.01 K/mm3 (0.00-0.68); EOSINOPHILS PERCENT AUTO 0 % (0-6); IMMATURE GRAN ABSOLUTE AUTO 0.67 K/mm3 (0.00-0.10); IMMATURE GRAN PERCENT AUTO 4 % (0-1); NEUTROPHILS ABSOLUTE AUTO 12.65 K/mm3 (1.96-9.15); NEUTROPHILS PERCENT AUTO 74 % (41-73)
[2021-05-22 15:05] LABS: Albumin, Blood 1.2 g/dL (3.4-5.0); Albumin/Globulin Ratio 0.4 (0.8-1.8); Beta-hydroxybutyrate 135.2 mg/dL (0.2-2.8); Bilirubin, Total 0.4 mg/dL (0.1-1.0); Bun/Creatinine Ratio 11.5 (12.0-20.0); Calcium, Blood 7.2 mg/dL (8.5-10.1); Creatinine, Blood 3.4 mg/dL (0.40-1.00); Globulin, Blood 3.1 g/dL (2.2-4.0); Potassium, Blood 6.6 mmol/L (3.5-5.5); Total Protein, Blood 4.3 g/dL (6.4-8.2)
[2021-05-22 15:09] LABS: International Normalized Ratio 1.53; Prothrombin Time Results 15.6 Sec (9.7-11.5)
[2021-05-22 15:09] LABS: BAND PERCENT MAN 6 % (0-8); BASOPHILS PERCENT MAN 0 % (0-2); EOSINOPHILS PERCENT MAN 0 % (0-6); LYMPHOCYTES ABSOLUTE MAN 2.55 K/mm3 (0.84-5.20); LYMPHOCYTES PERCENT MAN 15 % (21-46); MONOCYTES ABSOLUTE MAN 0.51 K/mm3 (0.16-1.47); MONOCYTES PERCENT MAN 3 % (4-13); MYELOCYTE ABSOLUTE MAN 0.17 K/mm3 (0.00-0.00); MYELOCYTE PERCENT MAN 1 % (0-0); NEUTROPHILS ABSOLUTE MAN 13.77 K/mm3 (1.96-9.15); SEG NEUTROPHILS PERCENT MAN 75 % (41-73); TOTAL CELLS COUNTED 100
[2021-05-22 15:17] LABS: Influenza A, PCR NEGATIVE (NEGATIVE); Influenza B, PCR NEGATIVE (NEGATIVE); Resp Syncytial Virus, PCR NEGATIVE (NEGATIVE)
[2021-05-22 15:24] LABS: Source, Urine Foley catheter
[2021-05-22 15:25] LABS: SARS-Cov-2 (COVID-19) PCR, MMC POSITIVE (NEGATIVE)
[2021-05-22 15:32] LABS: Bilirubin, Urine Neg (Neg); Blood, Urine 4+ (Neg); Glucose Qualitative, Urine 4+ (Neg); Ketones, Urine 2+ (Neg); Leukocyte Esterase, Urine 3+ (Neg); Nitrite, Urine Neg (Neg); Protein, Urine 3+ (Neg); Specific Gravity, Urine 1.025 (1.003-1.022); Urobilinogen, Urine NORM (Normal)
[2021-05-22 15:42] LABS: U Amphetamine Screen Not Detected; U Barbituate Screen Not Detected; U Benzodiazapine Screen Not Detected; U Buprenorphine Screen Not Detected; U Cannabinoids Screen Not Detected; U Cocaine Screen Not Detected; U Methadone Screen Not Detected; U Methamphetamine Screen Not Detected; U Opiates Screen Not Detected; U Oxycodone Screen Not Detected; U Phencyclidine Screen Not Detected; U Propoxyphene Screen Not Detected
[2021-05-22 15:44] LABS: Appearance, Urine Cloudy (Clear); Color, Urine Pale Yellow (P-Yellow)
[2021-05-22 15:45] LABS: Bacteria Many /hpf; Red Blood Cells, Urine 25-50 /hpf (0-2); Squamous Epithelial Cells Few /hpf (Few); Yeast/Fungi Urine Few /hpf
[2021-05-22 15:46] LABS: Amorphous Light (0-Heavy); Mucus Light (0-Heavy)
[2021-05-22 17:48] LABS: Bun/Creatinine Ratio 11.1 (12.0-20.0); Creatinine, Blood 3.15 mg/dL (0.40-1.00); Potassium, Blood 5.4 mmol/L (3.5-5.5)
[2021-05-22 17:49] LABS: Calcium, Blood 9.6 mg/dL (8.5-10.1)
[2021-05-22 17:53] LABS: Glucose, Blood 1190 mg/dL (70-99)
[2021-05-22 18:26] LABS: Base Excess Venous -29.7 mmol/L; Bicarbonate Venous 5.1 mmol/L (24.0-30.0); PCO2 Venous 25.6 mmHg (38-42); pH Blood Venous 6.83 (7.34-7.37)
--- NOTE | 2021-05-22 18:45 | NUR ---
REMOVED IO PLACED IN LEFT FRYE BY ED. CATHETER INTACT.
--- NOTE | 2021-05-22 19:06 | NUR ---
PT ARRIVED AT 1800. LEVO, PROPOFOL AND MED LINES RUNNING. PT ON 12 OF LEVO, 40 OF PROPOFOL, NS BOLUS RUNNING, SAFE ET PLACED ON CENTRAL LINE, INSULUIN DRIP CONTINUED, REPEAT POCT COLLECTED, LEFT FRYE WOUND CULTURED, REPLACED CENTRAL LINE DRESSING WITH CHG. PT HAS OPENED EYES AND SAT FORWARD, BUT NO COUCH AND UNREACTIVE PUPILS. FAMILY AWARE OF PT IN ICU. PT IS VENTEC ON VC 16/400/75%/5. WOUNDS WERE PHOTOGRAPHED, REMAIN OPEN TO AIR. PT WAS HYPOTHERMIC AT 90.6 AND BEAR HUGGER WAS PLACED. REPORT GIVEN TO ARIEL HIGH. OG TO VINCE.
[2021-05-22 20:39] LABS: Albumin, Blood 1.2 g/dL (3.4-5.0); Anion Gap 25 mmol/L (6-16); Blood Urea Nitrogen 37 mg/dL (8-24); Bun/Creatinine Ratio 11.9 (12.0-20.0); CO2, Blood 7 mmol/L (21-32); Chloride, Blood 100 mmol/L (98-108); Glomerular Filtration Rate 16 (60-); Glucose, Blood 1043 mg/dL (70-99); Potassium, Blood 4.9 mmol/L (3.5-5.5); Sodium, Blood 132 mmol/L (136-145)
[2021-05-22 22:34] LABS: Glucose, Blood 1040 mg/dL (70-99)
[2021-05-22 23:44] LABS: Glucose, Blood 1048 mg/dL (70-99)
[2021-05-23 00:37] LABS: Glucose, Blood 1003 mg/dL (70-99)
[2021-05-23 02:07] LABS: Glucose, Blood 1046 mg/dL (70-99)
[2021-05-23 03:42] LABS: Hematocrit 22.9 % (33.0-51.0); Hemoglobin 7.6 g/dL (11.5-16.0); Mean Corpuscular HGB 28.5 pg (26.0-34.0); Mean Corpuscular HGB Conc 33.2 g/dL (31.5-36.5); Mean Platelet Volume 10.5 fL (9.1-12.4); NRBC ABSOLUTE 0.07 K/mm3 (0.00-0.02); NRBC Auto 0.7 /100 WBC (0.0-0.2); Platelet Count 422 K/mm3 (150-400); RDW Coefficient Variation 13.7 % (11.7-14.2); RDW Standard Deviation 42.8 fL (35.1-46.3); Red Blood Cell Count 2.67 M/mm3 (3.80-5.20); White Blood Cell Count 10.47 K/mm3 (4.00-11.30)
[2021-05-23 03:52] LABS: Mean Corpuscular Volume 86 fL (80-100)
[2021-05-23 04:03] LABS: Alanine Aminotransfer (ALT/SGP 26 U/L (12-78); Albumin, Blood 1.9 g/dL (3.4-5.0); Albumin/Globulin Ratio 0.7 (0.8-1.8); Alk Phos 92 U/L (50-136); Anion Gap 17 mmol/L (6-16); Aspartate Aminotrans (AST/SGOT 37 U/L (12-37); Bilirubin, Direct 0.2 mg/dL (0.0-0.3); Bilirubin, Indirect 0.3 mg/dL (0.1-0.7); Bilirubin, Total 0.5 mg/dL (0.1-1.0); Blood Urea Nitrogen 35 mg/dL (8-24); Bun/Creatinine Ratio 11.6 (12.0-20.0); CO2, Blood 15 mmol/L (21-32); Calcium, Blood 6.4 mg/dL (8.5-10.1); Chloride, Blood 99 mmol/L (98-108); Creatinine, Blood 3.03 mg/dL (0.40-1.00); Globulin, Blood 2.7 g/dL (2.2-4.0); Glomerular Filtration Rate 17 (60-); Phosphorus, Blood 3.6 mg/dL (2.5-4.9); Potassium, Blood 4.2 mmol/L (3.5-5.5); Sodium, Blood 131 mmol/L (136-145); Total Protein, Blood 4.6 g/dL (6.4-8.2); Vancomycin, Random 26.4 ug/mL
[2021-05-23 04:08] LABS: Glucose, Blood 986 mg/dL (70-99)
[2021-05-23 05:29] LABS: BAND PERCENT MAN 28 % (0-8); BASOPHILS PERCENT MAN 1 % (0-2); EOSINOPHILS PERCENT MAN 0 % (0-6); LYMPHOCYTES ABSOLUTE MAN 1.57 K/mm3 (0.84-5.20); LYMPHOCYTES PERCENT MAN 15 % (21-46); METAMYELOCYTE PERCENT MAN 2 % (0-0); MONOCYTES PERCENT MAN 2 % (4-13); NEUTROPHILS ABSOLUTE MAN 8.37 K/mm3 (1.96-9.15); SEG NEUTROPHILS PERCENT MAN 52 % (41-73); TOTAL CELLS COUNTED 100
[2021-05-23 06:11] LABS: Glucose, Blood 999 mg/dL (70-99)
[2021-05-23 07:39] LABS: Glucose, Blood 937 mg/dL (70-99)
--- NOTE | 2021-05-23 07:54 | NUR ---
BLOOD PRESSURE UNSTABLE, LEVOPHED TITRATED NEEDED, VASOPRESSIN STARTED. INSULIN DRIP INFUSING TITRATED UP. DR HENRIQUEZ CALLED THIS AM REGARDING BLOOD SUGAR INCREASE DESPITE INCREASE OF INSULIN DRIP. WILL CHANGE BICARB DRIP TO REMOVE DEXTROSE. 2 EPISODES THROUGH NIGHT HAD MUCOUS PLUG CAUSING VENT TO UNABLE TO VENTILATE, REMOVED FROM CIRCUTE AND MANUALLY BAGGED FOR VENTILATION UNTIL RT ARRIVED TO ASSIST. SUCTIONED WELL AND ABLE TO PLACE BACK ON VENT PICTURES OF WOUNDS TO BILAT LOWER EXT TAKEN AND PLACED ON CHART. MEPILEX PLACED ON BILAT HEELS AND COCCYX FOR PREVENTION
--- NOTE | 2021-05-23 08:00 | NUR ---
ASSUMED CARE. Pt UNRESPONSIVE TO VERBAL AND PAINFUL STIMULI. RIGHT PUPIL UNREACTIVE, FIXED, NO MOVEMENT. LEFT PUPIL VERY SLIGHT REACTION TO NONE. NO GAG, SWALLOW, OR COUGH NOTED. NO MOTOR MOVEMENT. PROPOFOL INFUSING AT 50MCQ. PLACED ON HOLD DURATION 15 MINUTES, WITH NO RESPONSE. LS CLEAR WITH DIMINISHED BASES. ORAL SUCTION WITH BLOOD TINGED SECRETIONS, SMALL AMOUNTS. DEEP SUCTION BY RN AND RT WITH NO SPUTUM OBTAINED. VENT SETTINGS 16/400/10/100%, SATS 89-90%. CO2 30. SINUS ON THE MONITOR, WITH OCCATIONAL PVC'S. DISTINT HEART SOUNDS. GENERALIZED EDEMA FROM TOES TO HIPS +2 PITTING. FAINT RADIAL AND PEDAL PULSES.BP 106/53. MAP AVERAGE IN THE 80'S. GTTS: VASOPRESSOR 0.04MCQ, AND LEVO DECREASED FRO, 16 TO 14MCQ. CENTRAL LINE TO RIGHT FEMERAL CDI. PERIPHERAL TO RIGHT HAND PATENT. PALE COOL SKIN, SEVERAL ULCERS TO BLE. LEFT FRYE SCAB WITH REDNESS AND SWELLING, NO DRAINAGE AT THIS TIME. LEFT THIGH 2 SMALL RED AREAS, CLOSED. RIGHT FRYE HAS A TOTAL OF 5 ULCERS ALL DIFFERENT SIZES AND STAGES OF HEALING WITH IN PROXIMAL OF EACH OTHER. LEFT HEEL BLISTER INTACT, AND OLD BLISTER HEALING, LABIAS HAVE SEVERAL SCABBED SORES ON THEM. PLEASE SEE PICTURES IN CHART. HYPOACTIVE BT X4, OG TUBE TO LIS, GREEN BILE SMALL AMOUNTS NOTED. UNKNOWN LAST BM. KHALIL PATENT WITH SMALL AMOUNT OF URINE OUTPUT, CLOUDY MILKY YELLOW. BROWNISH RED BLOOD NOTED DURING CATH CARE. LAST BLOOD SUGAR 927. INSULIN INFUSING AT 24 UNITS/HR. NA-BICARB AT 200ML/HR. CRITICAL HIGH TROPONIN RECEIVED 1735. DR. FELDER WAS INFORMED OF PATIENT SITUATION, SHE WILL BE IN TO SEE THE PATIENT.
[2021-05-23 08:19] LABS: Glucose, Blood 927 mg/dL (70-99)
--- NOTE | 2021-05-23 09:00 | NUR ---
CODE: 0840-RT IN ROOM TO OBTAIN ABG, MONITOR NOTEING SATS DROPPING TO 87-88%. ARRIVED TO ROOM, RE-HOOKED UP BLOOD PRESSURE CUFF TO GET READING WELL, RT WAS UNABLE TO OBTAIN ABG ON RIGHT THEREFORE MOVED TO LEFT SIDE. AT THIS TIME. PATIENT HAD AN AGONAL BREATH, THEN HR LISA DOWN TO 45 THEN POPPED UP ABOVE 60. NOTED RHYTHM CHANGE FROM SINUS, DROPPED HR TO 30, THEN VTACH. 0847-CODE PULLED. RT STARTED TO BAG. CPR STARTED. TEAM ARRIVED. DR. FELDER IN ROOM. 0848-FIRST SHOCK GIVEN 200J. SHE RECEIVED A TOTAL OF 2AMP OF EPI, 1 AMP OB BICARB, 2 SHOCKS. ROSC OBTAINTED AT 0856 WITH PULSE OF 117, BP 162/132, 88% SATS. DR. FELDER WILL CONTACT FAMILY. SEE CODE FLOWSHEET.
[2021-05-23 09:30] LABS: PCO2 Arterial 37.3 mmHg (35-45); PO2 Arterial 47 mmHg (80-100); pH Blood Arterial 7.26 (7.35-7.45)
--- NOTE | 2021-05-23 09:35 | NUR ---
0928-SATS DROPPED DOWN LOW 71%. PULSE SLOWLY STARTED TO DROP BELOW 60. STARTED TO BAG PATIENT. GAVE EPI AT 0930 FOR A PULSE DROP TO 53. DR. FELDER AT BEDSIDE. 0932- PULSE BACK UP TO 157, BP 104/43. 79% SATS WITH BAGGING. 1 LITER OF NS BOLUS STARTED. DR. FELDER TO ORDER NEOSYNEPHRINE AND PLACE FURTHER ORDERS.
--- NOTE | 2021-05-23 10:00 | NUR ---
FAMILY HAS ARRIVED TO THE ROOM, 16 YEAR OLD DAUGHTER, FAMILY CLOSE FRIEND AND HER DAUGHTER. DR. FELDER SPOKE WITH THE FAMILY REGARDING SITUATION. FAMILY TO MAKE DECISIONS.
[2021-05-23 10:01] LABS: Albumin, Blood 1.5 g/dL (3.4-5.0); Anion Gap 14 mmol/L (6-16); Blood Urea Nitrogen 33 mg/dL (8-24); Bun/Creatinine Ratio 10.9 (12.0-20.0); CO2, Blood 19 mmol/L (21-32); Chloride, Blood 99 mmol/L (98-108); Creatinine, Blood 3.03 mg/dL (0.40-1.00); Glomerular Filtration Rate 17 (60-); Phosphorus, Blood 3.4 mg/dL (2.5-4.9); Potassium, Blood 3.9 mmol/L (3.5-5.5); Sodium, Blood 132 mmol/L (136-145)
[2021-05-23 10:10] LABS: Calcium, Blood 5.8 mg/dL (8.5-10.1); Glucose, Blood 893 mg/dL (70-99)
--- NOTE | 2021-05-23 11:45 | NUR ---
FAMILY DECIDED TO MAKE PATIENT COMFORT CARE. DAUGHTER STATED THAT SHE DOES NOT WANT HER MOTHER TO SUFFER ANY MORE. DR. FELDER WAS IN THE ROOM, AND WILL PUT IN ORDERS. FAMILY PLANS TO STAY AT BEDSIDE.
--- NOTE | 2021-05-23 12:30 | NUR ---
COMFORT CARE ORDER OBTAINED. GAVE MORPHINE AND ATIVAN PER EMAR. RT EXTUBATED AT 1210. FAMILY REMAINED AT BEDSIDE WITH PASTORAL RASHAAD. PATIENT PASSED AT 1218. FINAL DISCHARGE PER SAM HUMMEL RN.
--- NOTE | 2021-05-23 13:42 | NUR ---
Patient codes this morning and I respond to the rapid response. I learn of the family friend dynamics and the challenging position pt's dtr is in. I am called back to ICU when the family and friends arrive. I provide a prayer and life review. Family decide to place pt on comfort care and to extubate. I am in the for the extubation, pt dies with no sign of pain or struggle and appears very peaceful. Family grieve appropriately. I provide grief support and prayer.
== END 2021-05-23 12:18 | DRG 871 ==
LOC: ER 13:45 → PCU 17:04 → ICUW 17:21
PROVIDERS: Emergency Medicine; Family Medicine; Internal Medicine Critical Care Medicine; ADMIT Internal Medicine
PROC: 8E0ZXY6 Isolation (ICD-10-PCS; principal; 2021-05-22)
PROC: 5A1935Z Respiratory Ventilation, Less than 24 Consecutive Hours (ICD-10-PCS; 2021-05-22)
PROC: 3E033XZ Introduction of Vasopressor into Peripheral Vein, Percutaneous Approach (ICD-10-PCS; 2021-05-22)
PROC: 5A12012 Performance of Cardiac Output, Single, Manual (ICD-10-PCS; 2021-05-23)
DX: A41.9 Sepsis, unspecified organism (principal); U07.1 COVID-19; E10.11 Type 1 diabetes mellitus with ketoacidosis with coma; J12.82 Pneumonia due to coronavirus disease 2019; R65.21 Severe sepsis with septic shock; G92.8 Other toxic encephalopathy; J96.01 Acute respiratory failure with hypoxia; J15.9 Unspecified bacterial pneumonia; N17.9 Acute kidney failure, unspecified; N39.0 Urinary tract infection, site not specified; Z66 Do not resuscitate; Z51.5 Encounter for palliative care; E87.5 Hyperkalemia; I49.01 Ventricular fibrillation; Z78.1 Physical restraint status; E86.0 Dehydration; I12.9 Hypertensive chronic kidney disease with stage 1 through stage 4 chronic kidney disease, or unspecified chronic kidney disease; I46.9 Cardiac arrest, cause unspecified; E10.22 Type 1 diabetes mellitus with diabetic chronic kidney disease; N18.30 Chronic kidney disease, stage 3 unspecified; K21.9 Gastro-esophageal reflux disease without esophagitis; F41.9 Anxiety disorder, unspecified; Z79.4 Long term (current) use of insulin; Z79.899 Other long term (current) drug therapy
CPT/HCPCS: 0241U; 36415; 36556; 36600; 51702; 70450; 71045; 80047; 80048; 80053; 80069; 80202; 81001; 82010; 82248; 82272; 82728; 82803; 82947; 83540; 83550; 83605; 84100; 84145; 84484; 85014; 85025; 85610; 87040; 87077; 87086; 87186; 93005; 93010; 93308; 93321; 94003; 94640; 94667; 96365; 96366; 96368; 96375; 99291-25; 99292; A9270; C1751; C9113; J0456; J0461; J0610; J1644; J1815; J2060; J2270; J2370; J2543; J2704; J3010; J3370; J7030; J7040; J7050; J7060; J7070; P9046